=== PATIENT | male | born 1995 | race Two or more races ===

== ENCOUNTER 2023-08-26 21:15 | Emergency (ER) | payer MEDICAID ==
[~2023-08-26] VITALS: Ht 167.6 cm; Wt 79.0 kg
[2023-08-26 21:23] VITALS: TEMP 98.2; O2SAT 100
[2023-08-26] MEDS ORDERED: TETANUS, DIPHTHERIA, PERTUSSIS VAC/PF 0.5ML (>10YR OLD) IM ONE (22:15)
[2023-08-26] MEDS: BACITRACIN ZINC OINT UDPKT TOP ONE (22:15)
[2023-08-26] MEDS: LIDOCAINE HCL/PF 1% 10 MG/ML 5ML VIAL INFIL ONE (22:15)
[2023-08-26] MEDS: HYDROCODONE/ACETAMINOPHEN 5/325MG TABLET PO ONE (22:15)
[2023-08-27 00:14] VITALS: BP 138/65; PULSE 84; RESP 18
[2023-08-27] MEDS: HYDROCODONE/ACETAMINOPHEN 5/325MG TABLET PO NR (00:14)
[2023-08-27] MEDS: LIDOCAINE HCL/PF 1% 10 MG/ML 5ML VIAL INFIL NR (00:15)
[2023-08-27] MEDS: BACITRACIN ZINC OINT UDPKT TOP NR (00:15)
[2023-08-27] MEDS ORDERED: HYDR-4001 MT (00:57)
[2023-08-27] MEDS ORDERED: IBUP-2029 MT (00:57)
[2023-08-27] MEDS ORDERED: AMOX1TAB16 MT (00:57)
[2023-08-27] MEDS: TETANUS, DIPHTHERIA, PERTUSSIS VAC/PF 0.5ML (>10YR OLD) IM ONE (01:09)
[2023-08-27] MEDS: AMOXICILLIN/POTASSIUM CLAVULANATE 875/125MG TAB PO NR (01:21)
[2023-08-27] MEDS: AMOXICILLIN/POTASSIUM CLAVULANATE 875/125MG TAB PO ONE (01:21)
== END 2023-08-27 00:17 | disposition home or self-care (01) ==
LOC: ER 21:15
DX: S61.511A Laceration without foreign body of right wrist, initial encounter (principal); S61.411A Laceration without foreign body of right hand, initial encounter; M54.2 Cervicalgia; W54.0XXA Bitten by dog, initial encounter; Y93.89 Activity, other specified; Y92.89 Other specified places as the place of occurrence of the external cause; Y99.8 Other external cause status
CPT/HCPCS: 73110; 73130; 70486; 12004; 99285; 90715; 90471; J3490; Z7610 ×2

== ENCOUNTER 2023-08-31 15:50 | Emergency (ER) | payer MEDICAID ==
[~2023-08-31] VITALS: Ht 170.2 cm; Wt 90.0 kg
[~2023-08-31 15:50] MED LIST: AMOX1TAB16 MT; HYDR-4001 MT; IBUP-2029 MT
[2023-08-31 16:16] VITALS: BP 142/87; PULSE 76; RESP 16; TEMP 98.9; O2SAT 98
== END 2023-08-31 17:39 | disposition home or self-care (01) ==
LOC: ER 15:50
DX: S61.411A Laceration without foreign body of right hand, initial encounter (principal); Z98.890 Other specified postprocedural states; W54.0XXA Bitten by dog, initial encounter; Y93.89 Activity, other specified; Y92.89 Other specified places as the place of occurrence of the external cause; Y99.8 Other external cause status
CPT/HCPCS: 99281

== ENCOUNTER 2024-07-19 18:56 | Emergency (ER) | payer MEDICAID ==
[~2024-07-19] VITALS: Ht 172.7 cm; Wt 90.0 kg
[2024-07-19 19:01] VITALS: O2SAT 99
[2024-07-19 19:07] VITALS: BP 144/94; PULSE 92; RESP 16; TEMP 36.8; O2SAT 96
[2024-07-19] MEDS: FLUORESCEIN SODIUM 1MG/STRIP LEFTEYE ONE (22:18)
[2024-07-19] MEDS ORDERED: OFLO5DRO LEFTEYE (22:36)
== END 2024-07-19 23:24 | disposition home or self-care (01) ==
LOC: ER 18:56
DX: H20.9 Unspecified iridocyclitis (principal); Z79.899 Other long term (current) drug therapy
CPT/HCPCS: 99283